=== PATIENT | female | born 1965 | race Caucasian/White ===

== ENCOUNTER 2016-11-29 10:42 | Emergency (ER) | payer MEDICAID ==
[~2016-11-29] VITALS: Ht 160 cm; Wt 102.6 kg
[~2016-11-29 10:42] MED LIST: ALBU2.5V NPPB; ALBU6.7H INH; AMLO5TAB2 PO; AZIT500T5 PO; BUDE10.2 INH; CEFD300C37 PO; CITA20TA5 PO; CYCL-259 PO; DIAZ5TAB PO; FLUT12AE INH; HYDR50CA2 PO; LEVO50TA5 PO; LISI40TA PO; LORA-633 PO; METF500T4 PO; METO50TA82 PO; MONT10TA9 PO; NEBU1KIT; OXYB5TAB7 PO; OXYC-302 PO; OXYC10TA6 PO; PRED-402 PO; TRAZ100T15 PO
[2016-11-29 10:55] VITALS: BP 138/84
[2016-11-29] MEDS ORDERED: ONDANSETRON ODT 4 MG ONE (11:46)
[2016-11-29] MEDS ORDERED: HYDROcodone/APAP 10/325 MG TABLET ONE (11:46)
[2016-11-29] MEDS ORDERED: ONDANSETRON ODT 4 MG PO ONE (12:00)
[2016-11-29] MEDS ORDERED: HYDROcodone/APAP 10/325 MG TABLET PO ONE (12:00)
== END 2016-11-29 12:44 | disposition home or self-care (01) ==
LOC: ED 11:20
DX: J44.9 Chronic obstructive pulmonary disease, unspecified (principal); M51.16 Intervertebral disc disorders with radiculopathy, lumbar region; I10 Essential (primary) hypertension; E11.9 Type 2 diabetes mellitus without complications; Z88.1 Allergy status to other antibiotic agents
CPT/HCPCS: 72110; 99284; J7512; Q0162

== ENCOUNTER 2016-12-04 13:52 | Emergency (ER) | payer MEDICAID ==
[~2016-12-04] VITALS: Ht 160 cm; Wt 101.9 kg
[2016-12-04] MEDS ORDERED: MORPHINE SULFATE 4 MG/ML, 1ML IVPush PRN (15:00)
[2016-12-04] MEDS ORDERED: ONDANSETRON 2MG/ML, 2ML IVPush ONE (15:00)
[2016-12-04] MEDS ORDERED: SODIUM CHLORIDE FLUSH 10ML SYR IVF ONE (15:00)
[2016-12-04 15:04] LABS: HEMATOCRIT 44.2 % (34.6-47.8); HEMOGLOBIN 14.9 g/dL (11.7-16.4); WHITE BLOOD COUNT 11.1 x10^3/uL (3.4-10)
[2016-12-04 15:16] LABS: ASPARTATE AMINO TRANSFERASE 27 U/L (15-37); BLOOD UREA NITROGEN 17 mg/dL (7-18)
[2016-12-04] MEDS ORDERED: ONDANSETRON 2MG/ML, 2ML ONE (18:23)
[2016-12-04] MEDS ORDERED: MORPHINE SULFATE 4 MG/ML, 1ML ONE (18:23)
[2016-12-04] MEDS ORDERED: SODIUM CHLORIDE 0.9% 1,000ML IVBOLUS ONE (18:30)
[2016-12-04 19:57] LABS: PATH.CAST-FLAG NOT PRESENT; SPERM-FLAG NOT PRESENT; SRC-FLAG NOT PRESENT; XTAL-FLAG NOT PRESENT; YLC-FLAG NOT PRESENT
[2016-12-04 20:21] VITALS: BP 138/80
== END 2016-12-04 21:04 | disposition home or self-care (01) ==
LOC: ED 19:20
DX: N93.8 Other specified abnormal uterine and vaginal bleeding (principal); E11.9 Type 2 diabetes mellitus without complications; I10 Essential (primary) hypertension; E03.9 Hypothyroidism, unspecified; G89.29 Other chronic pain; J44.9 Chronic obstructive pulmonary disease, unspecified; Z90.49 Acquired absence of other specified parts of digestive tract; Z90.710 Acquired absence of both cervix and uterus
CPT/HCPCS: 36415; 74020; 76700; 76830; 80053; 81001; 85025; 96361; 96374; 96375; 99285; J2405; J7030

== ENCOUNTER → 2017-01-31 | Outpatient (CLI) | payer MEDICAID ==
[~2017-01-31] MED LIST changes: +ATOR20TA9 PO; +CHOL4PAC2 PO; +CITA40TA12 PO; +FURO-93 PO; +GABA300C10 PO; +NAPR500T4 PO; +ONE A DAY PO; +SACC250C4 PO; +TRAZ50TA18 PO
== END | disposition home or self-care (01) ==
LOC: STAR 07:48
PROVIDERS: ATTEND Obstetrics & Gynecology Female Pelvic Medicine and Reconstructive Surgery
DX: N95.0 Postmenopausal bleeding (principal); N39.3 Stress incontinence (female) (male); N81.10 Cystocele, unspecified; N81.6 Rectocele
CPT/HCPCS: 93005

== ENCOUNTER 2017-02-14 05:40 | Day surgery (SDC) | payer MEDICAID ==
[~2017-02-14] VITALS: Ht 160 cm; Wt 100.6 kg
[2017-02-14] MEDS ORDERED: EPINEPHRINE 1 MG/ML, 1ML ONE (06:46)
[2017-02-14] MEDS ORDERED: BUPIVACAINE/PF 0.25% ONE (06:46)
[2017-02-14] MEDS ORDERED: NEOMY/POLYMYXIN B GU IRR. 1 ML IRRIG ONE (06:47)
[2017-02-14] MEDS ORDERED: LACTATED RINGERS 1,000 ML IV SCH (06:51)
[2017-02-14 06:52] VITALS: BP 148/92
[2017-02-14 06:53] LABS: HCG UR LOT HCG7030192
[2017-02-14 06:56] LABS: HCG UR OBC PASS
[2017-02-14] MEDS ORDERED: MIDAZOLAM 1 MG/ML, 2ML ONE (07:19)
[2017-02-14] MEDS ORDERED: CEFAZOLIN 1,000 MG ONE (07:19)
[2017-02-14] MEDS ORDERED: NEOSTIGMINE 1 MG/ML, 10ML ONE (07:19)
[2017-02-14] MEDS ORDERED: SUCCINYLCHOLINE 20 MG/ML, 10ML ONE (07:19)
[2017-02-14] MEDS ORDERED: PROPOFOL 10 MG/ML, 20ML ONE (07:19)
[2017-02-14] MEDS ORDERED: ROCURONIUM 10 MG/ML,10ML ONE (07:19)
[2017-02-14] MEDS ORDERED: ONDANSETRON 2MG/ML, 2ML ONE (07:19)
[2017-02-14] MEDS ORDERED: FENTANYL PF 250 MCG/5ML ONE (07:19)
[2017-02-14] MEDS ORDERED: DEXAMETHASONE 4 MG/ML, 1ML ONE (07:19)
[2017-02-14] MEDS ORDERED: GLYCOPYRROLATE 0.2MG/1ML, 5ML ONE (07:19)
[2017-02-14] MEDS ORDERED: LIDOCAINE-MPF 2% ,5ML ONE (07:24)
[2017-02-14] MEDS ORDERED: LIDOCAINE 4%, 4 ML SYR/CANN TP ONE (07:25)
[2017-02-14] MEDS ORDERED: FENTANYL PF 100 MCG/2ML IV PRN (07:30)
[2017-02-14] MEDS ORDERED: PROMETHAZINE 25 MG/ML, 1ML IV PRN (07:30)
[2017-02-14] MEDS ORDERED: ACETAMINOPHEN 325 MG TABLET PO PRN (07:30)
[2017-02-14] MEDS ORDERED: HYDROmorphone 1 MG/ML, 1ML IV PRN (07:30)
[2017-02-14] MEDS ORDERED: ONDANSETRON 2MG/ML, 2ML IVPush PRN (07:30)
[2017-02-14] MEDS ORDERED: OXYcodone 5 MG/5 ML ORAL.SOL UDC PO PRN (07:30)
[2017-02-14] MEDS ORDERED: HYDROmorphone 2 MG/ML, 1ML ONE (08:16)
[2017-02-14] MEDS ORDERED: VASOPRESSIN 20 UNIT/ML, 1ML ONE (08:38)
[2017-02-14] MEDS ORDERED: ALBUTEROL SULFATE 2.5 MG/3 ML ONE (10:02)
[2017-02-14] MEDS ORDERED: ACETAMINOPHEN 325 MG TABLET ONE (10:22)
[2017-02-14] MEDS ORDERED: OXYcodone 5 MG/5 ML ORAL.SOL UDC ONE (10:22)
[2017-02-14] MEDS ORDERED: FENTANYL PF 100 MCG/2ML ONE (10:45)
== END 2017-02-14 13:40 ==
LOC: OUT 05:40
PROVIDERS: ATTEND Obstetrics & Gynecology Female Pelvic Medicine and Reconstructive Surgery
DX: N95.0 Postmenopausal bleeding (principal); N81.89 Other female genital prolapse; N39.3 Stress incontinence (female) (male); N94.10 Unspecified dyspareunia; I10 Essential (primary) hypertension; E11.9 Type 2 diabetes mellitus without complications; G43.909 Migraine, unspecified, not intractable, without status migrainosus; J45.909 Unspecified asthma, uncomplicated; Z90.49 Acquired absence of other specified parts of digestive tract; Z98.890 Other specified postprocedural states; Z88.1 Allergy status to other antibiotic agents
CPT/HCPCS: 57265; 57282; 57288; 58552; 81025; 82962; 88307; 94640; C1771; J0171; J0330; J0690; J1100; J1170; J2250; J2405; J2704; J2710; J3010; J3490; J7120

== ENCOUNTER 2017-03-09 11:32 | Inpatient (IN) | payer MEDICAID ==
[~2017-03-09] VITALS: Ht 160 cm; Wt 99.9 kg
[2017-03-09] MEDS ORDERED: ASPIRIN 81 MG TABLET CHEW PO ONE (12:00)
[2017-03-09] MEDS ORDERED: SODIUM CHLORIDE FLUSH 10ML SYR IVF ONE (12:00)
[2017-03-09 12:14] LABS: HEMATOCRIT 45.4 % (34.6-47.8); HEMOGLOBIN 15.2 g/dL (11.7-16.4); WHITE BLOOD COUNT 10.5 x10^3/uL (3.4-10)
[2017-03-09 12:23] LABS: BLOOD UREA NITROGEN 9 mg/dL (7-18)
[2017-03-09 12:29] LABS: ASPARTATE AMINO TRANSFERASE 25 U/L (15-37)
[2017-03-09 12:31] LABS: IS PT STATUS REG ER OR PRE ER? YES
[2017-03-09] MEDS ORDERED: NITROGLYCERIN 0.4 MG/SPRAY SL PRN (17:00)
[2017-03-09] MEDS ORDERED: ALBUTEROL/IPRATROPIUM 2.5MG/0.5MG, 3 ML NPPB PRN (17:00)
[2017-03-09] MEDS ORDERED: ACETAMINOPHEN 325 MG TABLET PO PRN (17:00)
[2017-03-09] MEDS ORDERED: ONDANSETRON 2MG/ML, 2ML IVPush PRN (17:00)
[2017-03-09 18:13] LABS: IS PT STATUS REG ER OR PRE ER? YES
[2017-03-09 18:29] VITALS: BP 132/83
[2017-03-09 19:25] VITALS: BP 118/77
[2017-03-09] MEDS: INSULIN ASPART 100 UNITS/ML, PEN SQ-INSULIN SCH (20:01)
[2017-03-09] MEDS: METOPROLOL TARTRATE 50 MG TABLET PO SCH (20:10)
[2017-03-09] MEDS: NAPROXEN 500 MG TABLET PO SCH (20:12)
[2017-03-09] MEDS: GABAPENTIN 300 MG CAPSULE PO SCH (20:12)
[2017-03-09] MEDS ORDERED: ATORVASTATIN 20 MG TABLET PO SCH (21:00)
[2017-03-09] MEDS ORDERED: MONTELUKAST 10 MG TABLET PO SCH (21:00)
[2017-03-09] MEDS ORDERED: CITALOPRAM 20 MG TABLET PO SCH (21:00)
[2017-03-09] MEDS ORDERED: CHOLESTYRAMINE LIGHT 4GM PACKET PO SCH (21:00)
[2017-03-09] MEDS ORDERED: TRAZODONE 100MG TABLET PO SCH (21:00)
[2017-03-10 01:21] LABS: IS PT STATUS REG ER OR PRE ER? NO
[2017-03-10 03:15] VITALS: BP 105/69
[2017-03-10] MEDS ORDERED: ASPIRIN 325 MG TABLET PO SCH (06:00)
[2017-03-10] MEDS ORDERED: LEVOTHYROXINE 50 MCG TABLET PO SCH (06:00)
[2017-03-10] MEDS: INSULIN ASPART 100 UNITS/ML, PEN SQ-INSULIN SCH ×3 (07:00→16:00)
[2017-03-10] MEDS ORDERED: REGADENOSON 0.4 MG/5 ML SYRINGE ONE (07:44)
[2017-03-10] MEDS ORDERED: AMLODIPINE 5 MG TABLET PO SCH (09:00)
[2017-03-10] MEDS ORDERED: FLORASTOR 250 MG CAPSULE PO SCH (09:00)
[2017-03-10] MEDS ORDERED: FUROSEMIDE 20 MG TABLET PO SCH (09:00)
[2017-03-10] MEDS ORDERED: LISINOPRIL 20 MG TABLET PO SCH (09:00)
[2017-03-10] MEDS ORDERED: FLUTICASONE/VILANTEROL 200-25MCG/INH INH SCH (09:00)
[2017-03-10 10:50] VITALS: BP 110/72
[2017-03-10] MEDS: METOPROLOL TARTRATE 50 MG TABLET PO SCH (10:52)
[2017-03-10] MEDS: GABAPENTIN 300 MG CAPSULE PO SCH ×2 (10:52→16:11)
[2017-03-10] MEDS: NAPROXEN 500 MG TABLET PO SCH (10:53)
[2017-03-10 16:20] VITALS: BP 120/77
== END 2017-03-10 17:00 | disposition home or self-care (01) | DRG 292 ==
LOC: ED 14:56 → EDIP 16:04 → 5SO 18:20
PROVIDERS: ADMIT Hospitalist; ATTEND Hospitalist
DX: I11.0 Hypertensive heart disease with heart failure (principal); I24.9 Acute ischemic heart disease, unspecified; E66.01 Morbid (severe) obesity due to excess calories; I20.0 Unstable angina; E11.9 Type 2 diabetes mellitus without complications; I50.9 Heart failure, unspecified; I08.1 Rheumatic disorders of both mitral and tricuspid valves; E78.5 Hyperlipidemia, unspecified; F12.90 Cannabis use, unspecified, uncomplicated; G47.33 Obstructive sleep apnea (adult) (pediatric); Z68.39 Body mass index [BMI] 39.0-39.9, adult; J44.9 Chronic obstructive pulmonary disease, unspecified; Z87.442 Personal history of urinary calculi; Z87.891 Personal history of nicotine dependence; Z90.710 Acquired absence of both cervix and uterus; Z88.2 Allergy status to sulfonamides
CPT/HCPCS: 36415; 71010; 78452; 80053; 82962; 83880; 84484; 85025; 93005; 93017; 93306; 99285; J2785; A9502; C9898

== ENCOUNTER 2017-05-01 10:11 | Emergency (ER) | payer MEDICAID ==
[~2017-05-01] VITALS: Ht 160 cm; Wt 99.5 kg
[2017-05-01] MEDS ORDERED: KETOROLAC 30 MG/1 ML IM ONE (11:30)
[2017-05-01] MEDS ORDERED: HYDROcodone/APAP 5/325 TABLET PO ONE (11:30)
[2017-05-01] MEDS ORDERED: HYDROcodone/APAP 5/325 TABLET ONE (11:51)
[2017-05-01] MEDS ORDERED: KETOROLAC 30 MG/1 ML ONE (11:51)
[2017-05-01 12:21] LABS: MICROSCOPIC NOT IND
[2017-05-01 12:23] LABS: CULTURE INDICATED? NO
[2017-05-01 13:23] VITALS: BP 114/61
== END 2017-05-01 13:25 | disposition home or self-care (01) ==
LOC: ED 12:13
DX: M47.28 Other spondylosis with radiculopathy, sacral and sacrococcygeal region (principal); M54.42 Lumbago with sciatica, left side; E11.9 Type 2 diabetes mellitus without complications; I10 Essential (primary) hypertension; E03.9 Hypothyroidism, unspecified; E78.5 Hyperlipidemia, unspecified; J44.9 Chronic obstructive pulmonary disease, unspecified; Z90.49 Acquired absence of other specified parts of digestive tract
CPT/HCPCS: 72110; 81003; 96372; 99285; J1885

== ENCOUNTER 2019-05-19 11:46 | Emergency (ER) | payer MEDICAID ==
[~2019-05-19] VITALS: Ht 160 cm; Wt 97.3 kg
[~2019-05-19 11:46] MED LIST changes: -ALBU6.7H INH; +ALBU6.7H8 INH; +AMLO-150 PO; -AMLO5TAB2 PO; +ATOR20TA37 PO; -ATOR20TA9 PO; +AZIT500T10 PO; -AZIT500T5 PO; -CITA20TA5 PO; +CITA20TA6 PO; +METF500T17 PO; -METF500T4 PO; +MONT10TA11 PO; -MONT10TA9 PO; +NAPR-685 PO; -NAPR500T4 PO; +OXYB5TAB10 PO; -OXYB5TAB7 PO; +TRAZ-175 PO; -TRAZ100T15 PO; -TRAZ50TA18 PO; +TRAZ50TA66 PO
[2019-05-19] MEDS ORDERED: FLUO40CA9 PO (12:11)
--- NOTE | 2019-05-19 12:12 | NUR ---
PT AMBULATED TO ROOM 36 PER PEDIS WITH WITH STRONG STEADY GAIT. PT C/O UPPER LIP PAIN THAT IS SO SEVERE SHE CAN NO LONGER PUT HER DENTURES IN TO EAT, AND IT'S CAUSING NASAL PAIN THE INTERFERES WITH HER BREATHING DUE TO SEVERE COPD. PT HAS 1X2CM ABCESS ON THE UPPER INNER LIP. WHITE MATTER IS VISIBLE, BUT NOT AT A STAGE WHERE IT CAN BE POPPED EASILY. MD IN TO ASSESS PATIENT. MD DISCUSSES POC WITH PATIENT. PT VERBALIZES UNDERSTANDING OF POC.
[2019-05-19 12:15] VITALS: BP 162/85
--- NOTE | 2019-05-19 12:35 | NUR ---
DISCHARGE INSTRUCTIONS WITH ONE PRESCRIPTION GIVEN. RN DISCUSSED ANITBIOTIC TO INCLUDE USE, FREQUENCY AND SIDE EFFECTS. PT TEACHES BACK INFORMATION GIVEN ABOUT ANTIBIOTICS AND HER DIAGNOSIS. RN DISCUSSED WITH PATIENT NEED TO MONITOR HER BLOOD SUGARS INFECTIONS CAN CAUSE INCREASE IN READINGS. RN DISCUSSED S/SX OF HYPOGLYCEMIA AND HYPERGLYCEMIA. PT TEACHES BACK ON RATIONALE FOR BLOOD GLUCOSE MONITORING AND S/SX OF BOTH HYPO/HYPERGLYCEMIA. RN DISCUSSED WITH PATIENT REASONS TO NOT SHARE ANY DRINKS, SILVERWARE OR PIPE FOR SMOKING WEED TO PREVENT POSSIBLE SPREAD OF INFECTION. RN DISCUSSED WITH PATIENT NEED TO CLEAN HER INHALERS AND PIPES AFTER USE TO PREVENT REINFECTION. PT TEACHES BACK ON ALL SUBJECTS AND VERBALIZES UNDERSTANDING OF MEDICATIONS AND SIDE EFFECT. PT VERBALIZES S/SX THAT SHE WOULD NEED TO RETURN TO ED.
== END 2019-05-19 12:44 | disposition home or self-care (01) ==
LOC: ED 12:00
DX: K13.0 Diseases of lips (principal); I10 Essential (primary) hypertension; E11.9 Type 2 diabetes mellitus without complications; Z87.891 Personal history of nicotine dependence
CPT/HCPCS: 99283